=== PATIENT | female | born 1985 | race Caucasian/White ===

== ENCOUNTER → 2024-10-16 10:15 | Outpatient (BNV) | payer OTHER, SELFPAY | PROVIDERS: Visit Provider Psychiatry & Neurology Psychiatry | DX: F43.10 Post-traumatic stress disorder, unspecified (principal); F34.89 Other specified persistent mood disorders; R41.840 Attention and concentration deficit; F41.9 Anxiety disorder, unspecified | CPT/HCPCS: 90792 ==

== ENCOUNTER 2024-11-17 09:00 | Outpatient (RCR) | payer OTHER, SELFPAY ==
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
[2024-10-19 11:39] VITALS: BMI 20.9
[2024-10-19 11:41] VITALS: BP 111/67; PULSE 61; TEMP 37.3
--- NOTE | 2024-10-19 15:07 | PC.ADMIT ---
Patient is a 39 year old single female who was referred to [facility] by crisis secondary to increased depression and anxiety secondary to her current living situation and break up with father of her child last August 2023. Patient reports losing 10 lbs since the break up however has gained 10 lbs since then. Regarding patient's living situation patient stated, I live with my mom and her sister and three kids and my step father who is a raging alcoholic. Trying to set up boundary's and advocate for myself . Patient stated in home therapy is coming into the home weekly. 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 Patient reports she works on Saturday' and will take shifts during the week at times however wants to work on her mental health and is cutting down her work hours as a result. regarding supports patient stated her mother is somewhat of a support however can be triggering to patient. Patient reports a history of trauma. Patient is alert and oriented x4. She is calm and cooperative. She presented with depressed mood and anxious affect. She denied SI, no HI. She was given a copy of her safety plan if needed. Medications updated with patient and patient's pharmacy. Patient reports she is taking her medications as prescribed. She stated she is no longer on Escitalopram or Sertraline secondary to night sweats and stopped taking the Nortriptyline 1.5 months ago as she stated she was put on Buspar instead. Patient denied having any issues with substance use.
--- NOTE | 2024-10-22 14:49 | HO.PHP ---
Clients case was opened and reviewed in teams today.
--- NOTE | 2024-10-30 19:11 | HO.PHPPROGNO ---
Subjective Subjective Date of Service: 10/30/24 Reason For Visit: stress,ADHD Interim History: Patient did not tolerate ABilify 1 mg. Experienced stiff neck for a number of days which resolved when she stopped taking Abilify. Presently feeling good . Feels her mood has leveled off . FEels the groups have been helpful. Irrational thoughts have taken a back seat . DEnies any h/h/SI. WOuld like to continue off any medication for the time. Medication Compliance: No Side effects from medications: Yes Attending Groups: Yes Review of Systems Acute medical concerns: No Mental Status Exam Mental Status Exam Patient Appearance: Well Grooomed Patient Orientation: Person, Place, Time and Situation Level of Consciousness: Awake and Alert Patient Behavior: Appropriate Mood Description: Anxious Affect Description: Appropriate Patient Cognition Impaired: No Ability to Follow Directions: Excellent Speech Pattern: Clear Hallucinations: None Delusions: Not Present Thought Process: Intact Thought Content: positive for Intact Judgement: Good Judgement and Insight: good Diagnostics Vital Signs (24Hr): BMI result Body Mass Index 20.9 Assessment & Plan Assessment & Plan (1) PTSD (post-traumatic stress disorder): Status: Acute Code(s): F43.10 - Post-traumatic stress disorder, unspecified (2) Attention and concentration deficit: Status: Acute Code(s): R41.840 - Attention and concentration deficit Plan continue PHP Abilify 1 mg discontinued Routine lab work as indicated EKG, routine for baseline QTc for medication considerations as indicated UDS as indicated MassPat reviewed Continue to monitor Patient educated on: diagnosis and medication risk/benefits Informed Consent: understands Reason for contiued partial hosp. stay Substantial Risk for: med/psych decompensation Certification I certify that partial hospital treatment is medically necessary due to the symptoms and problems resulting from the patient's mental illness and the failure to treat the patient at the partial hospital level of care would likely result in the patient requiring inpatient psychiatric care which could not be prevented at a less intensive level of care. Total time managing care of this patient today __30__ minutes. Discharge Plan Discharge Attending provider: Jackelyn Estrada Medications: New clonidine HCl 0.1 mg tablet See Rx Instructions .ROUTE .COMPLEX 7 Days Qty: 7 0RF Rx Instructions: Take 1 tab po qd prn for anxiety. Continued clindamycin phosphate 1 % gel See Rx Instructions .ROUTE .COMPLEX Rx Instructions: APPLY TO FACE TWICE A DAY selenium sulfide 2.5 % lotion See Rx Instructions .ROUTE .COMPLEX Rx Instructions: APPLY TO TRUNK TWICE DAILY, LEAVE ON FOR 10 MINS AND RINSE OFF. 09/17/24 lorazepam 0.5 mg tablet 0.5 mg PO DAILY PRN (Reason: Anxiety) atomoxetine 40 mg capsule 40 mg PO DAILY 7 Days Qty: 7 0RF Changed buspirone 7.5 mg tablet 7.5 mg PO BID 15 Days Qty: 60 0RF Stand Alone Forms: Patient Portal Discharge page Patient Education: PTSD (Post Traumatic Stress Disorder) (ED), ADHD in Adolescents (ED) Print Language: Bangladeshi
--- NOTE | 2024-11-02 22:37 | P.PNPSP_ITS ---
Subjective Subjective Date of Service: 11/02/24 Reason For Visit: stress,ADHD Interim History: Patient seen for follow-up. Had a rough couple of days Reports worsening anxiety and mood regulation over the weekend. Feels the mood issues, reactivity are coming back . Alot of rumination, but able to manage with the lorazepam. Says she would rather deal a stiff neck than feel emotionally all over the place . Denies any hopelessness or SI. Medication Compliance: Yes Side effects from medications: Yes (as noted) Attending Groups: Yes Review of Systems Acute medical concerns: No Mental Status Exam Mental Status Exam Narrative: Alert, oriented, in no acute distress. Calm, cooperative, engaged. No psychomotor agitation or neurovegetative retardation. Eye contact maintained. Mood anxious, labile, affect variable, mood congruent. Speech normal. Thought process linear, coherent. Thought content related to stressors, denies any hopelessness or SI. Denies any aggressive ideation or HI. No paranoia or delusional content elicited. No evidence of psychosis. Insight and judgment - fair but adequate. The Diagnostics Vital Signs (24Hr): BMI result Body Mass Index 20.9 Assessment & Plan Assessment & Plan (1) PTSD (post-traumatic stress disorder): Status: Acute Code(s): F43.10 - Post-traumatic stress disorder, unspecified (2) Other specified persistent mood disorders: Status: Acute Code(s): F34.89 - Other specified persistent mood disorders (3) Attention and concentration deficit: Status: Acute Code(s): R41.840 - Attention and concentration deficit (4) Anxiety disorder, unspecified: Status: Acute Code(s): F41.9 - Anxiety disorder, unspecified Plan extend PHP restart Abilify 0.25 - 0.5 mL qhs (liquid Abilify 1 mg/mL) Routine lab work slip given to review routine and B levels given neuro/se EKG, routine for baseline QTc for medication considerations as indicated UDS as indicated MassPat reviewed Continue to monitor Patient educated on: diagnosis and medication risk/benefits Informed Consent: understands Reason for contiued partial hosp. stay Substantial Risk for: inability to function and med/psych decompensation Certification I certify that partial hospital treatment is medically necessary due to the symptoms and problems resulting from the patient's mental illness and the failure to treat the patient at the partial hospital level of care would likely result in the patient requiring inpatient psychiatric care which could not be prevented at a less intensive level of care. Total time managing care of this patient today __30__ minutes. Discharge Plan Discharge Attending provider: Jackelyn Estrada Medications: New clonidine HCl 0.1 mg tablet See Rx Instructions .ROUTE .COMPLEX 7 Days Qty: 7 0RF Rx Instructions: Take 1 tab po qd prn for anxiety. Continued clindamycin phosphate 1 % gel See Rx Instructions .ROUTE .COMPLEX Rx Instructions: APPLY TO FACE TWICE A DAY selenium sulfide 2.5 % lotion See Rx Instructions .ROUTE .COMPLEX Rx Instructions: APPLY TO TRUNK TWICE DAILY, LEAVE ON FOR 10 MINS AND RINSE OFF. 09/17/24 lorazepam 0.5 mg tablet 0.5 mg PO DAILY PRN (Reason: Anxiety) atomoxetine 40 mg capsule 40 mg PO DAILY 7 Days Qty: 7 0RF Changed buspirone 7.5 mg tablet 7.5 mg PO BID 15 Days Qty: 60 0RF Stand Alone Forms: Patient Portal Discharge page Patient Education: PTSD (Post Traumatic Stress Disorder) (ED), ADHD in A dolescents (ED) Print Language: Guyanese
--- NOTE | 2024-11-10 12:13 | P.PNPSP_ITS ---
Subjective Subjective Date of Service: 11/10/24 Reason For Visit: stress,ADHD Interim History: PA for ABilify liquid was rejected, after attempting to call and reach insurance company, was still directed to online forms to petition after rejection. Met with patient who continues to struggle without mood stabilization and feels she was doing well on the ABilify 1 mg, aside from the stuff neck she had been experiencing, and resulting from ABilify (after holding/restarting the medication - causative). Patient feels confident that she will be able to quarter tablet (0.5 mg). Hopefully this dose will not cause dystonia. WIll still offer benztropine as PRN. Denies any hopelessness or SI. Medication Compliance: Yes Side effects from medications: Yes (as noted) Attending Groups: Yes Review of Systems Acute medical concerns: No Mental Status Exam Mental Status Exam Narrative: Alert, oriented, in no acute distress. Calm, cooperative, engaged. No psychomotor agitation or neurovegetative retardation. Eye contact maintained. Mood anxious, affect variable, mood congruent. Speech normal. Thought process linear, coherent. Thought content related to stressors, denies any hopelessness or SI. Denies any aggressive ideation or HI. No paranoia or delusional content elicited. No evidence of psychosis. Insight and judgment - fair but adequate. The Diagnostics Vital Signs (24Hr): BMI result Body Mass Index 20.9 Assessment & Plan Assessment & Plan (1) PTSD (post-traumatic stress disorder): Status: Acute Code(s): F43.10 - Post-traumatic stress disorder, unspecified (2) Other specified persistent mood disorders: Status: Acute Code(s): F34.89 - Other specified persistent mood disorders (3) Attention and concentration deficit: Status: Acute Code(s): R41.840 - Attention and concentration deficit (4) Anxiety disorder, unspecified: Status: Acute Code(s): F41.9 - Anxiety disorder, unspecified Plan extend PHP restart Abilify 0.5 mg qhs (1/4 tablet of 2 mg tab) PA rejected for liquid Jewell lify 0.5 mg (1 mg/mL) start benztropine 0.25-0.5 mg qd PRN for EPS/dystonia Routine lab work slip given to review routine and B levels given neuro/se EKG, routine for baseline QTc for medication considerations as indicated UDS as indicated MassPat reviewed Continue to monitor Patient educated on: diagnosis and medication risk/benefits Informed Consent: understands Reason for contiued partial hosp. stay Substantial Risk for: inability to function and med/psych decompensation Certification I certify that partial hospital treatment is medically necessary due to the symptoms and problems resulting from the patient's mental illness and the failure to treat the patient at the partial hospital level of care would likely result in the patient requiring inpatient psychiatric care which could not be prevented at a less intensive level of care. Total time managing care of this patient today __30__ minutes. Discharge Plan Discharge Attending provider: Jackelyn Estrada Medications: New aripiprazole 1 mg/mL solution 0.5 mg PO DAILY Qty: 150 0RF benztropine 0.5 mg tablet 0.25 - 0.5 mg PO DAILY PRN (Reason: extrapyramidal effects/symptoms) Qty: 14 0RF Changed buspirone 7.5 mg tablet 7.5 mg PO BID 15 Days Qty: 60 0RF No Action clindamycin phosphate 1 % gel See Rx Instructions .ROUTE .COMPLEX Rx Instructions: APPLY TO FACE TWICE A DAY selenium sulfide 2.5 % lotion See Rx Instructions .ROUTE .COMPLEX Rx Instructions: APPLY TO TRUNK TWICE DAILY, LEAVE ON FOR 10 MINS AND RINSE OFF. 09/17/24 lorazepam 0.5 mg tablet 0.5 mg PO DAILY PRN (Reason: Anxiety) atomoxetine 40 mg capsule 40 mg PO DAILY Stand Alone Forms: Patient Portal Discharge page Print Language: Yakut
--- NOTE | 2024-11-11 08:22 | HO.PHP ---
PHP adminMimi informed the team that Tessy will not be in attendance to program today and that there were no safety concerns presented.
--- NOTE | 2024-11-13 18:33 | HO.PHPPROGNO ---
Subjective Subjective Date of Service: 11/13/24 Reason For Visit: stress,ADHD Interim History: Pt lowered the Abilify to 1/4 of 2mg tab and still feels a little stiff. Tried taking it during the day and felt exhausted. Also feeling wiped out due to her period. Hasn't tried taking Abilify at night or the Cogentin that she has an rx for. Plans to try it. Taking Strattera but unsure how effectie it is. Plan was to trial Vyvanse + guanfacine but prefers to continue Strattera for now and f/u with her outpatient psychiatrist to switch the meds. Stimulants have helped w/ transition. She eventually wants to reduce her meds and engage in alternative therapies for managing depression adn PTSD, including TMS and EMDR. For now, she is amenable to a trial of clonidine off-label for tx of PTSD hyperarousal sx. Reviewd med r/b/a. Denies any issues w/ hypotension. BP on 10/19 was 111/67, HR 61 ' Medication Compliance: Yes Side effects from medications: Yes (see above) Attending Groups: Yes Mental Status Exam Mental Status Exam Patient Appearance: Well Grooomed Patient Orientation: Person, Place, Time and Situation Level of Consciousness: Awake and Alert Patient Behavior: Appropriate Mood Description: Anxious Affect Description: Appropriate Patient Cognition Impaired: No Ability to Follow Directions: Excellent Speech Pattern: Clear Hallucinations: None Delusions: Not Present Thought Process: Intact Thought Content: positive for Intact Judgement: Good Judgement and Insight: good Diagnostics Vital Signs (24Hr): BMI result Body Mass Index 20.9 Assessment & Plan Assessment & Plan (1) PTSD (post-traumatic stress disorder): Status: Acute Code(s): F43.10 - Post-traumatic stress disorder, unspecified (2) Attention and concentration deficit: Status: Acute Code(s): R41.840 - Attention and concentration deficit Plan Continue PHP Continue Abilify 0.5 mg (1/4 of 2 mg tab), switch to qhs. PA rejected for liquid Abilify 0.5 mg (1 mg/mL) start benztropine 0.25-0.5 mg qd PRN for EPS/dystonia Could trial Mg glycinate in the evening for anxiety/muscle relaxation Continue atomoxetine 40 mg qd, buspirone 7.5 mg bid, lorazepam 0.5 mg qd prn Reason for contiued partial hosp. stay Substantial Risk for: med/psych decompensation Certification I certify that partial hospital treatment is medically necessary due to the symptoms and problems resulting from the patient's mental illness and the failure to treat the patient at the partial hospital level of care would likely result in the patient requiring inpatient psychiatric care which could not be prevented at a less intensive level of care. Total time managing care of this patient today __30__ minutes. Discharge Plan Discharge Attending provider: Jackelyn Estrada Medications: New aripiprazole 1 mg/mL solution 0.5 mg PO DAILY Qty: 150 0RF benztropine 0.5 mg tablet 0.25 - 0.5 mg PO DAILY PRN (Reason: extrapyramidal effects/symptoms) Qty: 14 0RF clonidine HCl 0.1 mg tablet See Rx Instructions .ROUTE .COMPLEX 7 Days Qty: 7 0RF Rx Instructions: Take 1 tab po qd prn for anxiety. Changed buspirone 7.5 mg tablet 7.5 mg PO BID 15 Days Qty: 60 0RF No Action clindamycin phosphate 1 % gel See Rx Instructions .ROUTE .COMPLEX Rx Instructions: APPLY TO FACE TWICE A DAY selenium sulfide 2.5 % lotion See Rx Instructions .ROUTE .COMPLEX Rx Instructions: APPLY TO TRUNK TWICE DAILY, LEAVE ON FOR 10 MINS AND RINSE OFF. 09/17/24 lorazepam 0.5 mg tablet 0.5 mg PO DAILY PRN (Reason: Anxiety) atomoxetine 40 mg capsule 40 mg PO DAILY Stand Alone Forms: Patient Portal Discharge page Print Language: Turkish
--- NOTE | 2024-11-20 12:26 | PC.NURSE ---
Tessy did not complete lab work that was ordered on 11/10/24.
== END 2024-11-17 23:59 | disposition home or self-care (01) ==
LOC: HO.PHPA 09:00
PROVIDERS: Visit Provider Psychiatry & Neurology Psychiatry
DX: F43.10 Post-traumatic stress disorder, unspecified (principal); R41.840 Attention and concentration deficit; F34.89 Other specified persistent mood disorders; F41.9 Anxiety disorder, unspecified
CPT/HCPCS: 90791; 90853

== ENCOUNTER 2024-12-02 12:08 | Outpatient (RCR) | payer OTHER, SELFPAY | END 2024-12-02 13:02 | disposition home or self-care (01) | LOC: HO.PHPA 12:08 | PROVIDERS: Visit Provider Psychiatry & Neurology Psychiatry | DX: F41.9 Anxiety disorder, unspecified (principal) ==

== ENCOUNTER → 2024-12-07 09:45 | Outpatient (BNV) | payer OTHER, SELFPAY | PROVIDERS: Visit Provider Psychiatry & Neurology Psychiatry | DX: F43.10 Post-traumatic stress disorder, unspecified (principal); F34.89 Other specified persistent mood disorders; R41.840 Attention and concentration deficit; F41.9 Anxiety disorder, unspecified | CPT/HCPCS: 90792 ==

== ENCOUNTER 2024-12-08 09:45 | Outpatient (RCR) | payer OTHER, SELFPAY ==
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
[2024-12-07 14:12] VITALS: BP 115/78; PULSE 74; RESP 16; TEMP 36.6; O2SAT 98
[2024-12-07 14:13] VITALS: BMI 23.0
--- NOTE | 2024-12-07 15:03 | PC.ADMIT ---
Tessy is present today for her nursing admission for [facility]. She discharged from [facility] last week. She has a history of bipolar affective, mixed and anxiety disorder. She is alert, oriented x4, appears stated age. She has her left arm in a sling due to an undiagnosed onset of pain after putting in a car seat last week. She is restless during our intake, It just hurts , she has referrals to [facility] and for physical therapy. She reports taking flexeril and ibuprofen for the pain. She verbalizes stress being a single parent and having all this pain now. She is frustrated with the slow process. She presented to [facility] as she found [facility] very helpful and didnt want to return to life abruptly and now that her kids have school, the half day seemed like a good fit for me . She currently is only taking flexeril, lorazepam and ibuprofen from her list of verified medications. They originally thought my shoulder/neck stiffness was a side effect of the abilify. Now that I have all this pain, I dont want to ANYTHING ELSE . She wants to talk to Dr Street regarding PMDD. She doesnt drink alcohol, or smoke cigarettes, she is an occasional marijuana user, but less than weekly. She denies any urges to harm self or others and was given a copy of her safety plan.
--- NOTE | 2024-12-10 15:47 | HO.IOP ---
Client's case was open and reviewed in teams.
--- NOTE | 2024-12-10 15:58 | HO.IOP ---
Clients case was open and reviewed in teams.
== END 2024-12-08 23:59 | disposition home or self-care (01) ==
LOC: HO.IOP 09:45
PROVIDERS: Visit Provider Psychiatry & Neurology Psychiatry
DX: F43.10 Post-traumatic stress disorder, unspecified (principal); F34.89 Other specified persistent mood disorders; R41.840 Attention and concentration deficit; F41.9 Anxiety disorder, unspecified; Z79.899 Other long term (current) drug therapy
CPT/HCPCS: 90791; S9480